=== PATIENT | male | born 1990 | race Two or more races ===

== ENCOUNTER 2017-02-10 06:19 | Emergency (ER) | payer SELFPAY ==
[~2017-02-10] VITALS: Ht 180.3 cm; Wt 88.0 kg
[2017-02-10] MEDS ORDERED: HYDROmorphone 1 MG/ML, 1ML ONE ×2 (06:39→07:20)
[2017-02-10] MEDS ORDERED: ONDANSETRON 2MG/ML, 2ML ONE (06:40)
[2017-02-10] MEDS ORDERED: KETOROLAC 30 MG/1 ML ONE (06:40)
[2017-02-10] MEDS: HYDROmorphone 1 MG/ML, 1ML IVPush PRN ×2 (06:45→07:22)
[2017-02-10 06:53] LABS: HEMATOCRIT 51.2 % (39.2-51.8); HEMOGLOBIN 17.7 g/dL (13.7-18.0); WHITE BLOOD COUNT 5.6 x10^3/uL (3.4-10)
[2017-02-10] MEDS ORDERED: SODIUM CHLORIDE FLUSH 10ML SYR IVF ONE (07:00)
[2017-02-10] MEDS ORDERED: ONDANSETRON 2MG/ML, 2ML IVPush ONE (07:00)
[2017-02-10] MEDS ORDERED: KETOROLAC 30 MG/1 ML IVPush ONE (07:00)
[2017-02-10 07:04] LABS: BLOOD UREA NITROGEN 21 mg/dL (7-18)
[2017-02-10 08:09] VITALS: BP 131/82
== END 2017-02-10 08:11 | disposition home or self-care (01) ==
LOC: ED 08:10
DX: N20.2 Calculus of kidney with calculus of ureter (principal)
CPT/HCPCS: 36415; 74176; 80048; 81001; 82040; 85025; 87086; 96374; 96375; 96376; 99285; J1170; J1885; J2405

== ENCOUNTER 2020-05-19 06:35 | Emergency (ER) | payer OTHER ==
[~2020-05-19] VITALS: Ht 182.9 cm; Wt 96.4 kg
--- NOTE | 2020-05-19 06:47 | NUR ---
PT APPEARS IN ACUTE DISTRESS. C/O FLANK/LOW BACK PAIN SINCE YESTERDAY.
[2020-05-19] MEDS ORDERED: MORPHINE SULFATE 4 MG/ML, 1ML IVPush PRN (07:00)
[2020-05-19] MEDS ORDERED: ONDANSETRON 2MG/ML, 2ML IVPush ONE (07:00)
[2020-05-19] MEDS ORDERED: SODIUM CHLORIDE FLUSH 10ML SYR IVF ONE (07:00)
[2020-05-19] MEDS ORDERED: ONDANSETRON 2MG/ML, 2ML ONE (07:01)
[2020-05-19] MEDS ORDERED: MORPHINE SULFATE 4 MG/ML, 1ML ONE (07:01)
[2020-05-19 07:11] LABS: BASOPHILS % (AUTO) 1 % (0-1); EOSINOPHILS % (AUTO) 1 % (1-7); LYMPHOCYTES % (AUTO) 29 % (22-44); MEAN CORPUSCULAR HEMOGLOBIN 28.6 pg (27.5-34.5); MEAN PLATELET VOLUME 6.7 fL (7.4-10.4); MONOCYTES % (AUTO) 10 % (2-9); NEUTROPHILS % (AUTO) 60 % (42-75); PLATELET COUNT 251 x10^3/uL (130-400); RED BLOOD COUNT 5.81 x10^6/uL (4.38-5.82); RED CELL DISTRIBUTION WIDTH 12.6 % (9.4-14.8)
[2020-05-19 07:12] LABS: MD NO
--- NOTE | 2020-05-19 07:13 | NUR ---
pt taken to CT
[2020-05-19 07:23] LABS: ALBUMIN 4.6 g/dL (3.4-5.0); ANION GAP 4 mmol/L (5-15); CALCIUM 8.9 mg/dL (8.5-10.1); CHLORIDE 108 mmol/L (98-107); CREATININE 1.15 mg/dL (0.7-1.3)
--- NOTE | 2020-05-19 07:29 | NUR ---
returns from ct
[2020-05-19 07:41] LABS: MICROSCOPIC NOT IND
--- NOTE | 2020-05-19 08:09 | NUR ---
friend supportive at bedside.
[2020-05-19 08:44] VITALS: BP 128/68
== END 2020-05-19 08:46 | disposition home or self-care (01) ==
LOC: ED 08:07
DX: M54.5 Low back pain (principal); R10.9 Unspecified abdominal pain; R39.15 Urgency of urination; R31.9 Hematuria, unspecified
CPT/HCPCS: 36415; 74176; 80048; 81003; 82040; 85025; 96374; 96375; 99285; J2270; J2405